=== PATIENT | female | born 1980 | race Caucasian/White ===

== ENCOUNTER 2018-10-24 18:14 | Emergency (ER) | payer SELFPAY ==
[~2018-10-24] VITALS: Ht 157.5 cm; Wt 81.6 kg
[2018-10-24 18:36] VITALS: BP 147/78
[2018-10-24] MEDS ORDERED: CEPH-264 PO (19:23)
[2018-10-24] MEDS ORDERED: HYDR-2761 PO (19:23)
--- NOTE | 2018-10-24 19:24 | PHYS DOC ---
Past Medical History Past Medical History: Anxiety, Bipolar, Depression, Schizophrenia Additional Past Medical Histor: PARANOIA (LYLA GARCIA DENTAL PROFESSIONAL) Past Surgical History: No Surgical History (LYLA GARCIA DENTAL PROFESSIONAL) Alcohol Use: None Drug Use: None (LYLA GARCIA APRN) Adult General Chief Complaint Chief Complaint: SKIN RASH/ABSCESS [facility] HPI Patient is a 38 year old female who presents with coccyx pallor calling-sized red abscess. Abscess has been there for one week and is nondraining. Patient denies any fever or body aches. Patient rates her pain a 9 out of 10 and states is throbbing. (LYLA GARCIA DENTAL PROFESSIONAL) Review of Systems Review of Systems Constitutional: Denies fever or chills [] Eyes: Denies change in visual acuity, redness, or eye pain [] HENT: Denies nasal congestion or sore throat [] Respiratory: Denies cough or shortness of breath [] Cardiovascular: No additional information not addressed in HPI [] GI: Denies abdominal pain, nausea, vomiting, bloody stools or diarrhea [] : Denies dysuria or hematuria [] Musculoskeletal: Denies back pain or joint pain [] Integument: Abscess to coccyx. Denies rash or skin lesions [] Neurologic: Denies headache, focal weakness or sensory changes [] Endocrine: Denies polyuria or polydipsia [] All other systems were reviewed and found to be within normal limits, except as documented in this note. (LYLA GARCIA DENTAL PROFESSIONAL) Current Medications Current Medications Current Medications Medications (Trade) Dose Ordered Sig/Serene Start Time Stop Time Status Last Admin Dose Admin Acetaminophen/ Hydrocodone Bitart (Lortab 5/325) 1 tab 1X ONCE 10/24/18 19:30 10/24/18 19:35 DC 10/24/18 19:35 1 TAB (NAHUM COLLINS MD) Allergies Allergies Allergies Coded Allergies Type Severity Reaction Last Updated Verified No Known Drug Allergies 10/24/18 No (NAHUM COLLINS MD) Physical Exam Physical Exam Constitutional: Well developed, well nourished, no acute distress, non-toxic appearance. [] HENT: Normocephalic, atraumatic, bilateral external ears normal, oropharynx moist, no oral exudates, nose normal. [] Eyes: PERRLA, EOMI, conjunctiva normal, no discharge. [] Neck: Normal range of motion, no tenderness, supple, no stridor. [] Cardiovascular:Heart rate regular rhythm, no murmur [] Lungs & Thorax: Bilateral breath sounds clear to auscultation [] Abdomen: Bowel sounds normal, soft, no tenderness, no masses, no pulsatile masses. [] Skin: Coccyx, dollar coin sized, hard, reddened abscess. Warm, dry, no erythema, no rash. [] Back: No tenderness, no CVA tenderness. [] Extremities: No tenderness, no cyanosis, no clubbing, ROM intact, no edema. [] Neurologic: Alert and oriented X 3, normal motor function, normal sensory function, no focal deficits noted. [] Psychologic: Affect normal, judgement normal, mood normal. [] (LYLA GARCIA APRN) Current Patient Data Vital Signs Vital Signs Date Time Temp Pulse Resp B/P (MAP) Pulse Ox O2 Delivery O2 Flow Rate FiO2 10/24/18 18:36 97.7 109 18 147/78 (101) 94 Room Air 97.7 (NAHUM COLLINS MD) EKG EKG [] (LYLA GARCIA APRN) Radiology/Procedures Radiology/Procedures [] (LYLA GARCIA APRN) Course & Med Decision Making Course & Med Decision Making Patient is a 38 year old female who presents with coccyx pallor calling-sized red abscess. Abscess has been there for one week and is nondraining. Patient denies any fever or body aches. Patient rates her pain a 9 out of 10 and states is throbbing. Learn oriented. Speaks in full clear sentences. Vital signs are within normal limits. The abscess is hard and nonfluctuant and non-draining. Patient is told to follow up with her primary care provider. I will give her a antibiotic and pain medication. Patient is told to follow up in 48 hours for a recheck of the abscess. (LYLA GARCIA APRN) Course & Med Decision Making Staff Physician Addendum: I was working in the ER during the course of this patient's visit. I was available for consultation as needed, but I was not directly involved in the care of this patient. (NAHUM COLLINS MD) Dragon Disclaimer Dragon Disclaimer This electronic medical record was generated, in whole or in part, using a voice recognition dictation system. (LYLA GARCIA APRN) Departure Departure Impression: Primary Impression: Abscess Disposition: 01 HOME, SELF-CARE Condition: STABLE Patient Instructions: Abscess Additional Instructions: Return in 48 hours for wound recheck. Take medication as prescribed. Use heating pad or sit in warm bath. Scripts Hydrocodone Bit/Acetaminophen (HYDROCODONE-APAP 5-325 ) 1 Tab Tablet 1 TAB PO PRN Q6HRS PRN for PAIN, #10 TAB 0 Refills Prov: LYLA GARCIA APRN 10/24/18 Cephalexin (KEFLEX) 500 Mg Capsule 1 CAP PO TID, #21 CAP Prov: LYLA GARCIA APRN 10/24/18 LYLA GARCIA APRN Oct 24, 2018 19:24 NAHUM COLLINS MD Oct 25, 2018 00:44
[2018-10-24] MEDS ORDERED: HYDROcodone/APAP 5/325MG 1 TAB TABLET PO ONE (19:30)
== END 2018-10-24 19:35 | disposition home or self-care (01) ==
LOC: ER 18:14
DX: L02.212 Cutaneous abscess of back [any part, except buttock and flank] (principal); F31.9 Bipolar disorder, unspecified; F20.9 Schizophrenia, unspecified; F41.9 Anxiety disorder, unspecified
CPT/HCPCS: 99283